=== PATIENT | male | born 1995 | race Caucasian/White ===

== ENCOUNTER 2018-05-09 13:04 | Emergency (ER) | payer SELFPAY ==
[2018-05-09 13:06] VITALS: BP 125/77; PULSE 114; RESP 16; TEMP 36.9; O2SAT 97; BMI 34.6
[2018-05-09 14:09] VITALS: RESP 18
--- NOTE | 2018-05-09 14:10 | ED.DCSUM_ITS ---
- ER Visit Summary Date of Service: 05/09/18 Chief Complaint: Pilonidal abscess History of Present Illness: The patient is a 22 M presenting due to concern for pilonidal abscess. Patient reports that he had a history of this couple of months ago that was drained at an outside facility. He reports over the course last week he has had recollection of this. He has had subjective fevers associated with it. Physical Examination: Rectal exam shows evidence of induration superior to the patient's anus going up to the top of the patient's gluteal cleft without obvious underlying fluctuance. There is exquisite tenderness noted. Test Results: None indicated Emergency Department Course and Treatment: Patient presented secondary to a possible pilonidal abscess. Patient was consented for incision and drainage. Area was cleansed with rubbing alcohol and was anesthetized using a total of 10 cc 1% lidocaine. 3 separate stab incisions were made over areas where I potentially thought there could have been significant fluctuance. Blood was obtained, but no significant purulence. These areas did however have cavernous areas on probing with hemostats. Areas were then irrigated and left open. Patient was placed on Bactrim he was given pain medication and referral to general surgery as he potentially may need further exploration under anesthesia. Disposition: Discharge Impression: 1. Pilonidal cyst 2. Incision and drainage This note was generated with [employer] dictation software. It may contain incorrect words, spelling, and punctuation that were not noted in review of the chart prior to signing ED Disposition - Plan for ED Patient: Disposition: Home or Assisted Living Diagnosis: Pilonidal abscess Prescriptions: Oxycodone HCl/Acetaminophen [Percocet 5/325] 1 tab PO Q6H PRN PRN 3 Days #12 tab PRN Reason: Pain Smz/Tmp Ds [Bactrim Ds] 1 tab PO BID #14 tab Referrals: Cholo Anne MD [STAFF PHYSICIAN] - As soon as possible
[2018-05-09] MEDS: Smz/Tmp Ds Tablet 1 TABLET PO (14:21)
[2018-05-09] MEDS: oxyCODONE 5 MG Tablet 10 MG PO (14:21)
== END 2018-05-09 14:23 | disposition home or self-care (01) ==
LOC: ED 14:21
PROVIDERS: Emergency Provider Emergency Medicine
DX: L05.01 Pilonidal cyst with abscess (principal)
CPT/HCPCS: 10060; 99283